=== PATIENT | female | born 1955 | race Hispanic/Latino ===

== ENCOUNTER 2016-12-16 17:41 | Emergency (ER) | payer OTHER ==
[2016-12-16 17:41] VITALS: BMI 32.5
[2016-12-16 17:45] VITALS: BP 139/100; PULSE 79; RESP 18; TEMP 97.9; O2SAT 98
[2016-12-16] MEDS ORDERED: Oxycodone/Acetaminophen 5/325 mg Tab ONE (17:55)
[2016-12-16] MEDS ORDERED: Oxycodone/Acetaminophen 5/325 mg Tab PO STA (17:59)
--- NOTE | 2016-12-16 18:00 | ED PDOC ---
Lower Extremity Pain/Injury Time Seen by Provider: 12/16/16 17:53 Chief Complaint (Nursing): Lower Extremity Problem/Injury Chief Complaint (Provider): Lower Extremity Problem/Injury History Per: Patient History/Exam Limitations: no limitations Onset/Duration Of Symptoms: Mins, Hrs Current Symptoms Are (Timing): Still Present Severity: Mild Additional Complaint(s): 61 y/o female patient presenting to the ED with knee pain. PT states she was walking and slipped on orange over on corner of sidewalk. Pt states her foot went behind her causing her to fall down to the ground. PT states she has pain in her left shoulder and left knee. - Knee Description Of Injury: Fell (Abrasions on knee) - Ankle/Foot Description Of Injury: Fell (Abrasions on left second toe) Past Medical History Reviewed: Historical Data, Nursing Documentation, Vital Signs Vital Signs: Last Vital Signs Temp 97.9 F 12/16/16 17:44 Pulse 79 12/16/16 17:44 Resp 18 12/16/16 17:44 BP 139/100 H 12/16/16 17:44 Pulse Ox 98 12/16/16 17:44 - Medical History PMH: Asthma, HTN - Surgical History Surgical History: No Surg Hx - Family History Family History: States: Unknown Family Hx - Living Arrangements Living Arrangements: With Family - Social History Current smoker - smoking cessation education provided: No Alcohol: None Drugs: Denies - Home Medications Home Medications: Ambulatory Orders Medication Instructions Recorded oxyCODONE/Acetaminophen [Percocet 1 ea PO Q6H PRN #5 tab 12/16/16 5/325 mg Tab] - Allergies Allergies/Adverse Reactions: Allergies Allergy/AdvReac Type Severity Reaction Status Date / Time No Known Allergies Allergy Verified 12/16/16 17:43 Review of Systems ROS Statement: Except As Marked, All Systems Reviewed And Found Negative Musculoskeletal: Positive for: Shoulder Pain ((Left)), Leg Pain ((Left Knee)) Physical Exam - Reviewed Nursing Documentation Reviewed: Yes Vital Signs Reviewed: Yes - Physical Exam Appears: Positive for: Non-toxic, No Acute Distress Skin: Positive for: Warm. Negative for: Normal Color ((+) left knee abrasion ) Eye Exam: Positive for: Normal appearance ENT: Positive for: Normal ENT Inspection Neck: Positive for: Normal Respiratory: Negative for: Accessory Muscle Use, Respiratory Distress Extremity: Positive for: Other. Negative for: Normal ROM ((+)Decreased ROM in knee shoulder due to pain, Full ROM in left shoulder, (+)Abrasions to the Left 4th Toe and Knee) Neurologic/Psych: Positive for: Alert, Oriented. Negative for: Motor/Sensory Deficits - ECG O2 Sat by Pulse Oximetry: 98 (RA) Pulse Ox Interpretation: Normal Medical Decision Making Medical Decision Making: Time: 175 Initial impression: Left Shoulder Pain & Left Leg Pain Initial plan: --Knee 3 Views LT --Oxycodone/Acetaminophen Percocet 5/325mg 1 Tab --Shoulder Left (RAD) Scribe Attestation: Documented by Debra Trinidad acting as a scribe for TASHA Araujo MD Scribe Attestation: All medical record entries made by the Scribe were at my direction and personally dictated by me. I have reviewed the chart and agree that the record accurately reflects my personal performance of the history, physical exam, medical decision making, and the department course for this patient. I have also personally directed, reviewed, and agree with the discharge instructions and disposition. Disposition - Clinical Impression Clinical Impression: Knee pain, Shoulder injury - Patient ED Disposition Is Patient to be Admitted: No Counseled Patient/Family Regarding: Diagnosis, Need For Followup, Rx Given - Disposition Referrals: [facility] [Outside] Disposition: Routine/Home Disposition Time: 19:24 Condition: GOOD Prescriptions: oxyCODONE/Acetaminophen [Percocet 5/325 mg Tab] 1 ea PO Q6H PRN #5 tab PRN Reason: Pain, Severe (8-10) Instructions: Fall Prevention for Older Adults (ED)
--- NOTE | 2016-12-16 18:59 | RAD ---
PROCEDURE: Radiographs of the Left Shoulder HISTORY: pain s/p fall COMPARISON: No prior. FINDINGS: BONES: Normal. No fracture. JOINTS: Normal. Glenohumeral and acromioclavicular joints preserved. No osteoarthritis. SOFT TISSUES: Normal. OTHER FINDINGS: None. IMPRESSION: No acute findings related to/accounting for the clinical presentation.
--- NOTE | 2016-12-16 18:59 | RAD ---
PROCEDURE: Left Knee Radiographs. HISTORY: Posttraumatic pain. COMPARISON: None. FINDINGS: BONES: Normal. No fracture. JOINTS: Normal. No osteoarthritis. JOINT EFFUSION: None. OTHER FINDINGS: None. IMPRESSION: No acute findings related to/accounting for the clinical presentation.
== END 2016-12-16 19:36 | disposition home or self-care (01) ==
LOC: H.ER 17:41
DX: M25.562 Pain in left knee (principal); S49.92XA Unspecified injury of left shoulder and upper arm, initial encounter; W19.XXXA Unspecified fall, initial encounter; Y92.410 Unspecified street and highway as the place of occurrence of the external cause